=== PATIENT | male | born 1995 ===

== ENCOUNTER 2022-01-31 08:46 | Outpatient (REF) | payer OTHER, SELFPAY ==
[2022-01-31 09:16] LABS: MANUAL DIFF FLAG NO
[2022-01-31 09:47] LABS: Basophils Percent Auto 0.5 % (0-2); Eosinophils Absolute Auto 0.1 X10*3/uL (0.0-0.4); Hematocrit 41.9 % (42.0-52.0); Imm Gran Abs Auto 0.01 X10*3/uL (0.00-0.03); Imm Gran Pct Auto 0.2 % (0.0-0.4); Lymphocytes Absolute Auto 2.2 X10*3/uL (1.2-4.9); Lymphocytes Percent Auto 36.2 % (20-40); Mean Corpuscular HGB Conc 33.4 g/dl (31.0-36.0); Mean Corpuscular Hemoglobin 29.7 pg (27.0-33.0); Mean Corpuscular Volume 88.8 fL (80.0-98.0); Mean Platelet Volume 10.8 fL (9.4-12.4); Monocytes Absolute Auto 0.5 X10*3/uL (0.1-1.2); Monocytes Percent Auto 7.7 % (2-11); Neutrophils Absolute Auto 3.2 x10*3/uL (2.0-8.3); Neutrophils Percent Auto 53.4 % (45-73); Platelet Count 277 X10*3/uL (160-400); Red Blood Count 4.72 X10*6/uL (4.60-5.80); White Blood Count 6.1 X10*3/uL (4.8-10.8)
[2022-01-31 10:42] LABS: Alanine Aminotransferase 117 U/L (0-40); Albumin Level 4.4 g/dL (3.5-5.0); Alkaline Phosphatase 69 U/L (39-117); Anion Gap 14 (12-20); Aspartate Amino Transferase 63 U/L (5-37); Bilirubin Direct 0.2 mg/dL (0.0-0.5); Bilirubin Total 0.3 mg/dL (0.0-1.0); Blood Urea Nitrogen 13 mg/dL (9-16); Calcium 9.8 mg/dL (8.4-10.2); Carbon Dioxide 27 mmol/L (22-29); Chloride 103 mmol/L (96-108); Estimated Glomerular Filt Rate > 60; Gamma Glutamyl Transpeptidase 45 U/L (11-51); Glucose Fasting 113 mg/dL (60-99); Potassium 4.5 mmol/L (3.3-5.1); Sodium 139 mmol/L (135-145); Total Protein 7.9 g/dL (6.5-8.0)
== END 2022-01-31 08:47 | disposition home or self-care (01) ==
LOC: HO.LAB 08:46
PROVIDERS: PCP Internal Medicine; Visit Provider Nurse Practitioner Family
DX: Z00.00 Encounter for general adult medical examination without abnormal findings (principal); I10 Essential (primary) hypertension; R10.11 Right upper quadrant pain; E78.00 Pure hypercholesterolemia, unspecified
CPT/HCPCS: 36415; 80053; 80076; 82977; 85025

== ENCOUNTER 2022-03-22 13:44 | Outpatient (REF) | payer OTHER, SELFPAY ==
--- NOTE | ~2022-03-22 | US_ITS ---
EXAMINATION: US ABDOMEN COMPLETE CLINICAL INFORMATION: Liver enzymes. COMPARISON: Ultrasound limited abdomen 12/13/2017. Ultrasound abdomen 07/01/2017. CT abdomen 12/03/2007. TECHNIQUE: Real-time imaging of the abdominal viscera. FINDINGS: PANCREAS: Not well visualized due to bowel gas. ABDOMINAL AORTA: The proximal, mid, and distal segments are normal in caliber. INFERIOR VENA CAVA: Visualized portions are normal. LIVER: Liver echotexture is increased probably representing fatty infiltration. There are small hypoechoic areas adjacent to the gallbladder, a characteristic location of focal fatty sparing. The liver is normal in size. The liver contour is normal. No focal hepatic lesion. There is no intrahepatic biliary duct dilatation seen. GALLBLADDER: Normal. The gallbladder is physiologically distended without evidence of stones, sludge, polyps, wall thickening or pericholecystic fluid. COMMON BILE DUCT: Normal in caliber measuring 0.30 cm in diameter. RIGHT KIDNEY: Normal. No hydronephrosis. No renal calculi or focal parenchymal lesions. The kidney measures 11.3 cm in maximum dimension. LEFT KIDNEY: Normal. No hydronephrosis. No renal calculi or focal parenchymal lesions. The kidney measures 11.7 cm in maximum dimension. SPLEEN: Normal. The spleen measures 11.8 cm in maximum dimension. FREE FLUID: None. US/US abdomen complete IMPRESSION: Echogenic liver probably representing fatty infiltration. Limited visualization of the pancreas.
== END 2022-03-22 13:45 | disposition home or self-care (01) ==
LOC: HO.HMGCX 13:44
PROVIDERS: PCP Internal Medicine; Visit Provider Nurse Practitioner Family
DX: R74.01 Elevation of levels of liver transaminase levels (principal); R74.8 Abnormal levels of other serum enzymes
CPT/HCPCS: 76700

== ENCOUNTER 2023-01-17 17:23 | Emergency (ER) | payer OTHER, SELFPAY ==
[2023-01-17 18:03] VITALS: BP 152/95; PULSE 101; RESP 16; TEMP 36.1; O2SAT 100; BMI 39.5
--- NOTE | 2023-01-17 18:12 | ED.SKABFB ---
HPI - Skin/Abscess/Foreign Bdy General Chief complaint: General Medical <STEFFANIE Kirkland - Last Filed: 01/17/23 20:05> Stated complaint: abcess in nose <STEFFANIE Kirkland - Last Filed: 01/17/23 20:05> Time Seen by Provider: 01/17/23 22:28 <STEFFANIE Kirkland - Last Filed: 01/17/23 20:05> Source: patient, RN notes reviewed and old records reviewed <Corey Griffiths - Last Filed: 01/17/23 22:53> Mode of arrival: ambulatory <Corey Griffiths - Last Filed: 01/17/23 22:53> Limitations: no limitations <Corey Griffiths - Last Filed: 01/17/23 22:53> History of Present Illness HPI narrative: 27-year-old male presents for evaluation of a painful lump inside his right nostril. he 1st noticed the symptoms 4 days ago and reports that he had a small bump which has been getting larger he denies any drainage from the area. There was no trauma to the nose. He denies any fevers, chills patient denies any history of diabetes <Corey Griffiths - Last Filed: 01/17/23 22:53> Related Data Home medications: Previous Rx's Medication Instructions Recorded albuterol sulfate 90 mcg/actuation 1 inh inhalation QID PRN shortness 07/12/22 aerosol inhaler (Ventolin HFA) of breath or wheezing #8.5 grams azithromycin 250 mg tablet See Rx Instructions PO .COMPLEX #6 07/12/22 tabs sulfamethoxazole 800 1 tab PO BID #14 tabs 01/17/23 mg-trimethoprim 160 mg tablet (Bactrim DS) <STEFFANIE Kirkland - Last Filed: 01/17/23 20:05> Allergies/Adverse reactions: Allergies Allergy/AdvReac Type Severity Reaction Status Date / Time No Known Allergies Allergy Verified 01/17/23 18:02 <STEFFANIE Kirkland Last Filed: 01/17/23 20:05> Review of Systems ENT: Comments: painful lesion within the right nostril <Corey Griffiths - Last Filed: 01/17/23 22:53> PMFSH Past Medical History Surgical History: Surgical History (Updated 01/30/22 @ 16:17 by ARABELLA Villarreal) No pertinent past surgical history <STEFFANIE Kirkland - Last Filed: 01/17/23 20:05> Family History Family History: Family History (Updated 01/30/22 @ 16:17 by ARABELLA Villarreal) Mother Diabetes Hypertension Father No problems noted. <STEFFANIE Kirkland - Last Filed: 01/17/23 20:05> Social History Social History: Social History (Updated 01/30/22 @ 16:18 by ARABELLA Villarreal) Housing: House Alcohol intake: current Alcohol intake frequency: a few times a month Alcohol type: beer Patient Tobacco Use Status: Never used Tobacco e-Cigarette/Vaping Use: Never Used Second Hand Smoke Exposure: No Advance Directives: No Advance Directives Information Provided: No service: No Current occupational status: employed Current occupational exposures/hazards: No Cognitive needs: No Hearing needs: No Vision needs: No <STEFFANIE Kirkland - Last Filed: 01/17/23 20:05> Physical Exam Vital Signs: Vital Signs: Last Vital Signs Temp 97 F 01/17/23 18:03 Pulse 101 H 01/17/23 18:03 Resp 16 01/17/23 18:03 BP 152/95 H 01/17/23 18:03 Pulse Ox 100 01/17/23 18:03 O2 Del Method Room Air 01/17/23 18:03 BMI result Body Mass Index 39.5 <STEFFANIE Kirkland - Last Filed: 01/17/23 20:05> Vital Signs: Last Vital Signs Temp 97 F 01/17/23 18:03 Pulse 101 H 01/17/23 18:03 Resp 16 01/17/23 18:03 BP 152/95 H 01/17/23 18:03 Pulse Ox 100 01/17/23 18:03 O2 Del Method Room Air 01/17/23 18:03 BMI result Body Mass Index 39.5 <Corey Griffiths - Last Filed: 01/17/23 22:53> HEENT: Other: patient has an approximately 2 cm fluctuant, erythematous abscess just within the lateral side of the right nostril. Is approximately 1 cm into the right nostril. no evidence of septal hematoma or abscess affecting the septal side <Corey Griffiths - Last Filed: 01/17/23 22:53> General nose exam: Normal external nose present and Normal septum present <Corey Griffiths - Last Filed: 01/17/23 22:53> Course Course Course Narrative: RME - 27 yo male presents to the ER for evaluation of an abscess on the inner portion of the right nare that has been getting larger for the last 4 days. States it is making it hard for him to breathe out of that nostril. Urgent Care advised him to come to the ER for evaluation. Round abscess seen in the right nare, not occluding, no drainage. Plan: topical lidocaine and I&D, abx, declined drained without numbing agent <STEFFANIE Kirkland - Last Filed: 01/17/23 20:05> Medications Administered Discontinued Medications Generic Name Dose Route Start Last Admin Trade Name Freq PRN Reason Stop Dose Admin Lidocaine HCl 15 ml 01/17/23 22:34 01/17/23 22:44 Lidocaine Hcl Viscous 2 % 15 Ml Solution MUCOUS MEM 01/17/23 22:35 15 ml ONCE ONE Administration <STEFFANIE Kirkland - Last Filed: 01/17/23 20:05> Medications Administered Discontinued Medications Generic Name Dose Route Start Last Admin Trade Name Freq PRN Reason Stop Dose Admin Lidocaine HCl 15 ml 01/17/23 22:34 01/17/23 22:44 Lidocaine Hcl Viscous 2 % 15 Ml Solution MUCOUS MEM 01/17/23 22:35 15 ml ONCE ONE Administration <Corey Griffiths - Last Filed: 01/17/23 22:53> Medical Decision Making Medical Decision Making MDM Narrative: Patient a small abscess that was locally anesthetized with viscous lidocaine and then I was able to aspirate approximately 1 cc of purulent drainage. The patient will continue with warm compresses and oral Bactrim <Corey Griffiths - Last Filed: 01/17/23 22:53> Differential Diagnosis abscess Cellulitis Nasal polyp septal hematoma <Corey Griffiths - Last Filed: 01/17/23 22:53> Procedures Abscess I/D Site: other ( right nostril) <Corey Griffiths - Last Filed: 05/10/23 22:53> Side (if applicable): right <Corey Griffiths - Last Filed: 01/17/23 22:53> Local Anesthetic: other anesthetic ( viscous lidocaine) <Corey Griffiths - Last Filed: 01/17/23 22:53> Amount of anesthesia used (mL): 2 <Corey Griffiths - Last Filed: 01/17/23 22:53> Technique: needle aspiration <Corey Griffiths - Last Filed: 01/17/23 22:53> Amount of fluid expressed (mL): 1 <Corey Griffiths - Last Filed: 01/17/23 22:53> Discharge Plan Discharge Clinical Impression: Abscess <STEFFANIE Kirkland - Last Filed: 01/17/23 20:05> Patient Disposition: Home, Self-Care <STEFFANIE Kirklnad - Last Filed: 01/17/23 20:05> Instructions: Abscess (ED) <STEFFANIE Kirkland - Last Filed: 01/17/23 20:05> Additional Instructions: it appears the your a small abscess within your right nostril this was drained with needle aspiration you should continue with warm compresses take Bactrim twice daily for the next 7 days <STEFFANIE Kirkland - Last Filed: 01/17/23 20:05> Prescriptions: New sulfamethoxazole-trimethoprim [Bactrim DS] 800-160 mg tablet 1 tab PO BID Qty: 14 0RF No Action azithromycin 250 mg tablet See Rx Instructions PO .COMPLEX Qty: 6 0RF Rx Instructions: take 500 mg today (day 1), then 250 mg for 4 days (days 2-5) PO albuterol sulfate [Ventolin HFA] 90 mcg/actuation HFA aerosol inhaler 1 inh inhalation QID PRN (Reason: shortness of breath or wheezing) Qty: 8.5 1RF <STEFFANIE Kirkland - Last Filed: 01/17/23 20:05>
[2023-01-17] MEDS: Lidocaine HCl Viscous 2 % 15 ML SOLUTION MUCOUS MEM (22:44)
--- NOTE | 2023-01-17 22:45 | PC.NURSE ---
pt medicated per NOV- I&D performed by STEFFANIE coyle
== END 2023-01-17 22:57 | disposition home or self-care (01) ==
PROVIDERS: Emergency Provider Internal Medicine; PCP Internal Medicine
DX: J34.0 Abscess, furuncle and carbuncle of nose (principal)
CPT/HCPCS: 10160; 99282; 99284